=== PATIENT | male | born 1955 | race Native Hawaiian/Other Pacific Islander ===

== ENCOUNTER 2017-02-28 06:52 | Day surgery (SDC) | payer OTHER ==
[2017-02-28 09:21] VITALS: BMI 22.2
[2017-02-28] MEDS ORDERED: Propofol 10 mg/ml Inj (20 ML) ONE ×2 (09:39→10:10)
[2017-02-28 10:56] VITALS: TEMP 97.2
[2017-02-28 11:27] VITALS: RESP 16; O2SAT 99
[2017-02-28 11:41] VITALS: BP 127/67; PULSE 51
== END 2017-02-28 11:36 | disposition home or self-care (01) ==
LOC: C.ENDO 06:52
PROVIDERS: ATTEND Internal Medicine Gastroenterology
DX: Z12.11 Encounter for screening for malignant neoplasm of colon (principal); R63.4 Abnormal weight loss; B96.81 Helicobacter pylori [H. pylori] as the cause of diseases classified elsewhere; K29.70 Gastritis, unspecified, without bleeding; K64.1 Second degree hemorrhoids
CPT/HCPCS: 43239; 45378; 88305; 88342; J2001; J2704